=== PATIENT | male | born 1965 | race Caucasian/White ===

== ENCOUNTER → 2021-05-24 13:03 | Outpatient (CLI) | payer MEDICAID, SELFPAY ==
[2021-05-24 14:27] LABS: Hematocrit 46.1 % (42.0-52.0); Mean Corpuscular HGB Conc 32.5 g/dL (31.8-35.4); Mean Corpuscular Hemoglobin 29.6 pg (27.0-31.2); Mean Corpuscular Volume 91.1 fl (80-94); Platelet Count 285 K/mm3 (142-424); Red Blood Count 5.06 M/mm3 (4.60-6.20); Red Cell Distribution Width 14.1 % (11.5-17.5); White Blood Count 6.5 K/mm3 (4.8-10.8)
[2021-05-24 14:30] LABS: INR 1.02 (0.9-1.1); Prothrombin Time 11.5 seconds (10.1-12.5)
[2021-05-24 14:45] LABS: Alanine Aminotransferase 24 U/L (12-78); Albumin Level 4.3 g/dl (3.5-5.0); Albumin/Globulin Ratio 1.3 (1.1-1.8); Alkaline Phosphatase 91 U/L (38-126); Anion Gap 13.5 mEq/L (5-15); Aspartate Amino Transferase 38 U/L (17-59); Bilirubin,Total 0.6 mg/dl (0.2-1.3); Blood Urea Nitrogen 22 mg/dl (9-20); Calcium 9.2 mg/dl (8.4-10.2); Carbon Dioxide 32 mmol/L (22.0-30.0); Chloride 97 mmol/L (98-107); Estimated Glomerular Filt Rate 87 ml/min (>60); GFR (African American) 106 ML/MIN (>60); Globulin 3.4 g/dL (1.3-3.2); Glucose 97 mg/dl (74-100); Potassium 4.5 mmoL/L (3.5-5.1); Sodium 138 mmol/L (136-145); Total Protein,Serum 7.7 g/dl (6.3-8.2)
[2021-05-24 15:01] LABS: Free T4 (Free Thyroxine) 1.04 ng/dl (0.78-2.19)
[2021-05-24 15:16] LABS: Thyroid Stimulating Hormone 2.58 uIU/mL (0.465-4.68)
[2021-05-25 07:23] LABS: Hep Be Ag Negative (Negative); Hepatitis B Surf Ab Quant <3.1 mIU/mL (Immunity>9.9); Hepatitis B Surface Antigen Positive (Negative)
[2021-05-25 15:10] LABS: Hepatitis Be Antibody Positive (Negative)
[2021-05-27 01:07] LABS: Testosterone, Total, LC/MS 145.4 ng/dL (264.0-916.0); Testosterone,Free 6.3 pg/mL (7.2-24.0)
== END ==
PROVIDERS: PCP Pediatrics; Referring Provider Physician Assistant; Visit Provider Pediatrics
DX: B18.1 Chronic viral hepatitis B without delta-agent (principal); I10 Essential (primary) hypertension; R11.0 Nausea; R60.9 Edema, unspecified; E29.1 Testicular hypofunction
CPT/HCPCS: 36415; 80053; 84402; 84403; 84439; 84443; 85014; 85018; 85048; 85049; 85610; 86706; 86707; 87340; 87350; 87517